=== PATIENT | male | born 1980 | race Caucasian/White ===

== ENCOUNTER → 2021-09-06 12:37 | Outpatient (BNVA) | payer OTHER, SELFPAY | PROVIDERS: Visit Provider Physician Assistant | DX: T15.92XA Foreign body on external eye, part unspecified, left eye, initial encounter (principal); S05.42XA Penetrating wound of orbit with or without foreign body, left eye, initial encounter; X58.XXXA Exposure to other specified factors, initial encounter | CPT/HCPCS: 92002; 99203 ==